=== PATIENT | male | born 1975 | race Caucasian/White ===

== ENCOUNTER 2016-10-27 06:11 | Day surgery (SDC) | payer SELFPAY ==
[~2016-10-27] VITALS: Ht 175.3 cm; Wt 68.2 kg
[~2016-10-27 06:11] MED LIST: OXYC5 PO
[2016-10-27 06:56] VITALS: BP 127/79; PULSE 58; RESP 20; TEMP 97.9; O2SAT 99
[2016-10-27] MEDS ORDERED: SODIUM CHLORIDE 0.9% 1000 ML IV SCH (07:15)
[2016-10-27] MEDS ORDERED: ceFAZolin 2 GM PREMIX 50 ML - implanted port removal IV SCH (07:15)
[2016-10-27] MEDS ORDERED: MARI10CA PO (07:17)
[2016-10-27] MEDS ORDERED: ZANT150T2 PO (07:17)
[2016-10-27] MEDS ORDERED: ESOM1CAP16 PO (07:17)
[2016-10-27] MEDS ORDERED: LEVO.1 PO (07:17)
[2016-10-27 07:19] LABS: BASOPHIL % 0.7 % (0.0-2.0); EOSINOPHIL # 0.2 TH/MM3 (0-0.4); EOSINOPHIL % 4.1 % (0.0-4.0); HEMATOCRIT 37.8 % (39.0-51.0); HEMO FLAGS DIFF FINAL; LYMPH % 21.7 % (9.0-44.0); MEAN CELL VOLUME 88.3 FL (80.0-100.0); MEAN CORPUSCULAR HEMOGLOBIN 29.8 PG (27.0-34.0); MEAN CORPUSCULAR HGB CONC 33.7 % (32.0-36.0); MONO % 8.6 % (0.0-8.0); NEUT % 64.9 % (16.0-70.0); PLATELET COUNT 137 TH/MM3 (150-450); RED BLOOD COUNT 4.28 MIL/MM3 (4.50-5.90); RED CELL DISTRIBUTION WIDTH 13.5 % (11.6-17.2); WHITE BLOOD COUNT 4.6 TH/MM3 (4.0-11.0)
[2016-10-27 07:27] LABS: APTT (PATIENT) 25.9 SEC (24.3-30.1); INTERNATIONAL NORMALIZED RATIO 0.9 RATIO
[2016-10-27] MEDS ORDERED: MIDAZOLAM HCL 5 MG/5 ML VIAL ONE (07:46)
[2016-10-27] MEDS ORDERED: fentaNYL CITRATE 250 MCG/5 ML AMP ONE (07:47)
[2016-10-27] MEDS ORDERED: LIDOCAINE 1%/EPINEPHrine 1:100,000 SOLN 30 ML VIAL ONE (08:10)
[2016-10-27 08:55] VITALS: BP 117/67; PULSE 66; RESP 20; TEMP 97.8; O2SAT 98
--- NOTE | 2016-10-27 09:07 | PD.RAD ---
Post Procedure Progress Note Pre Procedure Diagnosis: (1) Port catheter in place Post Procedure Diagnosis: (1) Port catheter in place Procedure Date: Oct 27, 2016 Supervising Radiologist: Enrrique Guthrie Proceduralist/Assist: Chriss Berman, RT(R), Chelsie Anderson RT(R) Estimated blood loss: 0 ml Anesthesia: Conscious Sedation Plan of Activity Patient to Unit: ROPU Patient Condition: Good Additional Comments: Port removed. Intact. See PACS Report for procedural detail/treatment Enrrique Guthrie MD Oct 27, 2016 09:07
[2016-10-27 09:10] VITALS: BP 126/80; PULSE 85; RESP 16; O2SAT 98
[2016-10-27 09:40] VITALS: BP 98/56; PULSE 60; RESP 18; O2SAT 97
--- NOTE | 2016-10-27 09:51 | RADRPT ---
EXAM DATE/TIME: 10/27/2016 07:33 [facility] COMPARISON: No previous studies available for comparison. INDICATIONS : Patient presents with a history of throat cancer in need of port removal that is no longer needed. MEDICAL HISTORY : Hx throat cancer Back pain Reflux Anxiety SURGICAL HISTORY : Right wrist fx sx ENCOUNTER: Subsequent ACUITY: > 1 year PAIN SCORE: 0/10 LOCATION: N/A SEDATION TIME: 30 minutes 1.) 4 mg midazolam (Versed) IV 2.) 200 mcg fentanyl (Sublimaze) IV 3.) 2 g cefazolin (Ancef) IV Prophylactic antibiotics were administered with appropriate pre-procedure timing. Vancomycin within 2 hrs of procedure, Ancef (or alternative) within 1 hr of procedure. PROCEDURE : 1. Removal of [id number]. 2. Conscious sedation with continuous EKG and oximetry monitoring. The risk, benefits and potential complications of [id number] removal were discussed. Written conse nt was obtained. The patient was placed supine. The chest wall was prepped in sterile fashion. Full sterile techniqu e was used, including cap, mask, sterile gloves and gown, and a large sterile sheet. Hand hygiene an d 2% chlorhexidine and/or Betadine/alcohol prep was utilized per protocol for cutaneous antisepsis. The skin and subcutaneous tissues were infiltrated with local anesthetic solution. A small incision w as made, the subcutaneous pocket was opened. The port was dissected from the subcutaneous tissues and easily removed in one piece. The pocket incision was closed with subcuticular Vicryl suture. Steri -Strips were applied. Conscious sedation was performed with the prescribed dosages and duration as above in the presence of an independent trained radiology nurse to assist in the monitoring of the patient. EKG and oximetry remained stable throughout the procedure. The patient tolerated the procedure well and there were no complications. The patient was sent to post anesthesia recovery in stable condition. CONCLUSION: Uncomplicated port removal as above. Enrrique Guthrie MD on October 27, 2016 at 9:49 Board Certified Radiologist. This report was verified electronically.
[2016-10-27 10:10] VITALS: BP 110/62; PULSE 71; RESP 16; O2SAT 96
== END 2016-10-27 10:43 | disposition home or self-care (01) ==
LOC: HROP 06:11 → HRIP 06:12 → HROP 10:43
PROVIDERS: ATTEND Internal Medicine Hematology & Oncology
DX: Z45.2 Encounter for adjustment and management of vascular access device (principal); K21.9 Gastro-esophageal reflux disease without esophagitis; F41.9 Anxiety disorder, unspecified; Z85.819 Personal history of malignant neoplasm of unspecified site of lip, oral cavity, and pharynx
CPT/HCPCS: 36590; 85025; 85610; 85730; 99152; 99153; J0690; J2250; J3010; J7030